=== PATIENT | male | born 1995 | race American Indian/Alaskan Native ===

== ENCOUNTER 2019-09-02 08:02 | Emergency (ER) | payer OTHER ==
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
--- NOTE | 2019-09-02 09:04 | XRay Report ---
RIGHT ANKLE, 2 VIEWS INDICATION: swelling/pain. COMPARISON: None. IMPRESSION: Normal bone mineralization. No acute osseous injury or significant joint pathology is d emonstrated. There is apparent chronic deformity in the distal tibia and fibula which could represent a chronic healed fracture. On the lateral view there is suggestion of a 7.0 x 2.4 cm eccentric bone lesion in the distal, lateral tibia without aggressive features. This may represent a nonossifying fi broma. If further evaluation is needed CT or MRI would provide the most information. Signer Name: Jean-Paul Encinas Jr, MD Signed: 09/02/2019 8:59 AM Workstation Name: [id number]
[2019-09-02] MEDS ORDERED: CYCLOBENZAPRINE 10 MG TAB PO ONE (09:25)
[2019-09-02 09:39] VITALS: BP 122/77
== END 2019-09-02 09:38 | disposition home or self-care (01) ==
LOC: ED 08:02
DX: M25.571 Pain in right ankle and joints of right foot (principal); Z98.890 Other specified postprocedural states; F17.200 Nicotine dependence, unspecified, uncomplicated; V49.49XA Driver injured in collision with other motor vehicles in traffic accident, initial encounter; Y93.89 Activity, other specified; Y92.410 Unspecified street and highway as the place of occurrence of the external cause; Y99.8 Other external cause status